=== PATIENT | male | born 2000 | race Caucasian/White ===

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

== ENCOUNTER 2021-09-16 15:49 | Emergency (ER) | payer OTHER ==
[2021-09-16 16:55] LABS: BILIRUBIN NEGATIVE (NEGATIVE); BLOOD 3+ Ery/uL (NEGATIVE); CLARITY HAZY (CLEAR); COLOR YELLOW (YELLOW); GLUCOSE (U) NORMAL (NORMAL); LEUKOCYTES TRACE Leu/uL (NEGATIVE); NITRITE NEGATIVE (NEGATIVE); PROTEIN TRACE (LOW) mg/dL (NEGATIVE); UROBILINOGEN 0.2 mg/dL (0.2-1.0); pH 7.5 (5.0-9.0)
[2021-09-16 17:18] LABS: AMORPHOUS URATES CRYSTALS LARGE; URINARY RBC 20-50; URINARY WBC RARE
[2021-09-16 17:46] LABS: BASOPHIL 0.4 % (0-2); EOSINOPHIL 1.5 % (0-5); HCT 44.5 % (42.0-52.0); HGB 14.6 g/dl (13.2-18.0); LYMPHOCYTE 21.6 % (15-48); MCH 29.1 pg (25.0-31.0); MCHC 32.8 g/dL (32.0-36.0); MCV 88.8 fL (78.0-100.0); MONOCYTE 8.6 % (0-12); MPV 10.5 fL (6.0-9.5); NEUTROPHIL 67.6 % (41-80); NRBC 0; PLT 272 K/uL (150-400); RBC 5.01 M/uL (4.70-6.00); RDW 13.4 % (11.5-14.0); WBC 13.9 K/uL (4.0-10.5)
[2021-09-16 18:08] LABS: ALBUMIN 3.9 g/dL (3.4-5.0); BILIRUBIN - TOTAL 0.4 mg/dL (0.2-1.0); BUN/CREAT RATIO (CALC) 18.6 RATIO; CREATININE 0.97 mg/dL (0.67-1.17); GLOBULIN (CALCULATION) 3.5 g/dL; TOTAL PROTEIN 7.4 g/dL (6.4-8.2)
[2021-09-16] MEDS ORDERED: NORCO 5-325 TA1 EACH PO (19:17)
[2021-09-16] MEDS ORDERED: FLOMAX0.4 MG PO (19:17)
== END 2021-09-16 19:28 | disposition home or self-care (01) ==
LOC: FER 15:49
PROVIDERS: Emergency Medicine
DX: N13.2 Hydronephrosis with renal and ureteral calculous obstruction (principal); Z28.310 Unvaccinated for COVID-19
CPT/HCPCS: 36415; 80053; 81001; 85025; J1885; J7030